=== PATIENT | male | born 2000 | race Caucasian/White ===

== ENCOUNTER 2024-12-24 18:10 | Emergency (ER) | payer MEDICAID ==
[2024-12-24 18:13] VITALS: PULSE 91; RESP 16; O2SAT 100
== END 2024-12-24 18:32 | disposition left against medical advice (07) ==
LOC: ER 18:10
DX: R51.9 Headache, unspecified (principal); R11.0 Nausea; Z53.21 Procedure and treatment not carried out due to patient leaving prior to being seen by health care provider